=== PATIENT | female | born 1995 | race African-American/Black ===

== ENCOUNTER 2018-04-29 19:43 | Inpatient (IN) | payer OTHER ==
[~2018-04-29] VITALS: Ht 175.3 cm; Wt 83.0 kg
[2018-04-29 21:43] LABS: ABSOLUTE BASOPHIL COUNT 0 /CUMM (0.0-0.2); ABSOLUTE EOSINOPHIL COUNT 0 /CUMM (0.0-0.7); ABSOLUTE GRANULOCYTE CT 5.3 /CUMM (1.4-6.5); ABSOLUTE LYMPH COUNT 0.8 /CUMM (1.2-3.4); ABSOLUTE MONOCYTE COUNT 0.5 /CUMM (0.10-0.60); BASOPHIL % 0.1 % (0.0-2.0); EOSINOPHIL % 0.6 % (0-5); GRANULOCYTE % 80.4 % (42.2-75.2); MEAN CORPUSCULAR HGB 32.5 PG (27.0-31.0); MEAN CORPUSCULAR HGB CONC 34.1 G/DL (33.0-37.0); MEAN CORPUSCULAR VOLUME 95.4 FL (81.0-99.0); MEAN PLATELET VOLUME 12.1 FL (7.4-10.4); RED BLOOD CELL CT 3.25 /CUMM (4.20-5.40); WHITE BLOOD CELL COUNT 6.6 /CUMM (4.8-10.8)
[2018-04-29 21:45] LABS: PLATELET COUNT 125 /CUMM (130-400)
--- NOTE | 2018-04-30 08:00 | History & Physical ---
General Information and HPI MD Statement: I have seen and personally examined CONNOR GAN and documented this H&P. The patient is a 23 year old female at 39 weeks and 5 days gestation who presented with a chief complaint of srom clear fluid. 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 Denies: chills, fever. EENTM: Denies: blurred vision, double vision, visual changes. Cardiovascular: Denies: chest pain. Respiratory: Denies: cough, short of breath. GI: Denies: abdominal pain, diarrhea, nausea, vomiting. Skin: Reports: no symptoms. Neurological/Psychological: Denies: anxiety, depressed. Exam & Diagnostic Data Last 24 Hrs of Vital Signs/I&O vss Intake & Output 04/30 0800 04/30 0000 04/29 1600 Intake Total Output Total Balance Patient 183 lb Weight Obstetric Exam Wgt Gained During : 26# Pelvimetry: seems adequate Dilation (cm): 3 Effacement (%): 50 Station: -2 Membranes: SROM Fluid: clear Fundal Height (cm): 37 Multiple Gestation? No Contractions: rare #1 - FHR Baseline: 130 Category: 1 Estimated Weight: 3600g Presentation: vtx Patient for Induction? Yes Vazquez Score Vazquez Score Response Value Cervix Position: posterior 0 Cervix Consistency: soft 2 Cervix Effacement: 30-50% 1 Cervix Dilation: 1-2 cm 1 Cervix Station: -1 2 Total 6 Physical Exam General Appearance Alert, Oriented X3, Cooperative, No Acute Distress Skin No Rashes HEENT Atraumatic Neck Supple Cardiovascular Regular Rate Lungs Clear to Auscultation Abdomen Normal Bowel Sounds, Soft Neurological Normal Gait, Normal Speech, Strength at 5/5 X4 Ext, Normal Tone Labs Blood Type & Rh: B pos Antibody Screen: neg Hct/Hgb & Platelets #1: 32.1/11.3/145 Hct/Hgb & Platelets #2: 33.7/11.1/159 Rubella: immune VDRL #1: nr VDRL #2: nr HbsAg: neg HIV #1: nr HIV #2 nr 1 Hr P Group B Strep: neg Initial Ultrasound: 10/15/17 10w1d Anatomy Ultrasound: 01/09/18 normal Ultrasound for EFW: 04/17/18 56%tile Genetic Testing: cf neg, Last 24 Hrs of Labs/Rubén: Laboratory Tests 04/29/182039: CBC w Diff NO MAN DIFF REQ, RBC 3.25 L, MCV 95.4, MCH 32.5 H, MCHC 34.1, RDW 13.0, MPV 12.1 H, Gran % 80.4 H, Lymphocytes % 11.9 L, Monocytes % 7.0, Eosinophils % 0.6, Basophils % 0.1, Absolute Granulocytes 5.3, Absolute Lymphocytes 0.8 L, Absolute Monocytes 0.5, Absolute Eosinophils 0, Absolute Basophils 0 04/29/181999: Membrane Rupture POSITIVE, Urine Color YEL, Urine Clarity HAZY H, Urine pH 6.5, Ur Specific Agenda 1.010, Urine Protein NEG, Urine Ketones NEG, Urine Nitrite NEG, Urine Bilirubin NEG, Urine Urobilinogen 0.2, Ur Leukocyte Esterase MOD H, Ur Microscopic SEDIMENT EXAMINED, Urine RBC FEW H, Urine WBC > 75 H, Ur Epithelial Cells MANY H, Urine Mucus FEW, Urine Hemoglobin NEG, Urine Glucose NEG Microbiology 04/29 2000 URINE ROUT: Urine Culture - RECD Assessment/Plan Assessment/Plan: iup at term SROM clear gbs negative no labor after15 hours rom will start pitocin. As Ranked By This Provider Problem List: 1. Core Measures Venous Thromboembolism VTE Risk Factors / No Mechanical VTE Prophylaxis d/t LowRisk-No Interven Req'd No VTE Pharm Prophylaxis d/t LowRisk-No Interven Req'd Attending MD Review Statement Attending Statement Attending MD Statement: examined this patient, discussed with family, discussed w/nursing
[2018-04-30] MEDS ORDERED: PRENATAL TABLE1 EAC2 PO (08:38)
[2018-04-30 10:44] LABS: ABSOLUTE BASOPHIL COUNT 0 /CUMM (0.0-0.2); ABSOLUTE EOSINOPHIL COUNT 0 /CUMM (0.0-0.7); ABSOLUTE GRANULOCYTE CT 4.8 /CUMM (1.4-6.5); ABSOLUTE LYMPH COUNT 0.8 /CUMM (1.2-3.4); ABSOLUTE MONOCYTE COUNT 0.5 /CUMM (0.10-0.60); BASOPHIL % 0 % (0.0-2.0); EOSINOPHIL % 0.8 % (0-5); GRANULOCYTE % 78.4 % (42.2-75.2); HEMATOCRIT 32.9 % (37-47); MEAN CORPUSCULAR HGB 32.4 PG (27.0-31.0); MEAN CORPUSCULAR HGB CONC 33.9 G/DL (33.0-37.0); MEAN CORPUSCULAR VOLUME 95.5 FL (81.0-99.0); MEAN PLATELET VOLUME 11.1 FL (7.4-10.4); PLATELET COUNT 130 /CUMM (130-400); RBC DISTRIBUTION WIDTH 12.7 % (11.5-14.5); RED BLOOD CELL CT 3.44 /CUMM (4.20-5.40); WHITE BLOOD CELL COUNT 6.1 /CUMM (4.8-10.8)
--- NOTE | 2018-04-30 12:26 | PN- OBGYN ---
Surgical Brief Attending Note Brief Attending Note: Pitocin started 8am pt now 5-6 cm and anterior bp has been trending up 150/100 PIH labs done and all normal except UTP/Cr is elevated pt is asymptomatic imp PIH without severe features will hold MgSO4 for now continue to monitor bp and symptoms pt declines epidural or any pain meds.
--- NOTE | 2018-04-30 13:31 | Labor & Delivery Summary ---
Delivery Summary Vaginal Delivery: Vaginal: vertex Episiotomy/Lacerations: Episiotomy/Lacerations: none Type: MIDLINE Repair: 3-0 POLYSORB Anesthesia: NESSICAINE 8CC Placenta: Placenta: spontanteous, normal, 3 vessel, nuchal cord (x_) Anesthesia: none Apgars - 1 Min: 9 Apgars - 5 Min: 9 Additional Comments: PUSHED 3 TIMES LOOSE NUCHAL PLACENTE INTACT REPARE EPISE 3-0 POLYSORB
[2018-05-01 09:23] LABS: ABSOLUTE BASOPHIL COUNT 0 /CUMM (0.0-0.2); ABSOLUTE EOSINOPHIL COUNT 0 /CUMM (0.0-0.7); ABSOLUTE GRANULOCYTE CT 6.2 /CUMM (1.4-6.5); ABSOLUTE LYMPH COUNT 1.2 /CUMM (1.2-3.4); ABSOLUTE MONOCYTE COUNT 0.6 /CUMM (0.10-0.60); BASOPHIL % 0 % (0.0-2.0); EOSINOPHIL % 0.3 % (0-5); GRANULOCYTE % 77.9 % (42.2-75.2); HEMATOCRIT 29.8 % (37-47); MEAN CORPUSCULAR HGB 32.8 PG (27.0-31.0); MEAN CORPUSCULAR HGB CONC 34.1 G/DL (33.0-37.0); MEAN PLATELET VOLUME 10.9 FL (7.4-10.4); PLATELET COUNT 121 /CUMM (130-400); RBC DISTRIBUTION WIDTH 12.6 % (11.5-14.5); RED BLOOD CELL CT 3.11 /CUMM (4.20-5.40)
--- NOTE | 2018-05-01 09:38 | PN- Post Delivery/GYN ---
Subjective Subjective: doing well, no complaints. tolerate diet, void without difficulties, ambulating well. Review of Systems Constitutional: Reports: no symptoms. EENTM: Reports: no symptoms. Cardiovascular: Reports: no symptoms. Respiratory: Reports: no symptoms. Genitourinary: Reports: see HPI. Musculoskeletal: Reports: no symptoms. All Other Systems: Reviewed and Negative Objective Last 24 Hrs of Vital Signs/I&O vss Physical Exam: CV RRR Lungs CTA B/L Abdomen: soft, nontender, uterus firm, fundus below umbilicus, lochia mild Ext: DCT (-) Current Medications: Current Medications Sig/Jade Start time Last Medication Dose Route Stop Time Status Admin Acetaminophen 650 MG Q4P PRN 04/30 1330 AC PO Chloroprocaine HCl 30 ML ONCE ONE 04/30 1330 DC 04/30 SC 04/30 1331 1353 Docusate Sodium 100 MG BID PRN 04/30 1330 AC PO Hydroxyzine HCl 50 MG AT BEDTIME NEED.. 04/30 1330 AC PO Ibuprofen 800 MG Q6P PRN 04/30 1330 AC PO Labetalol HCl 100 MG BID 04/30 1427 DC PO Lactated Ringer's 1,000 ML Q8H 04/29 2045 DC 04/30 IV 0746 Magnesium Hydroxide 30 ML DAILY NEEDED PRN 04/30 1330 AC PO Oxytocin 20 UNITS Q5H 04/30 1330 DC 04/30 Lactated Ringer's 1,000 ML IV 04/30 1829 1353 Oxytocin 30 UNITS PER PROTOCL 04/30 0745 DC 04/30 Lactated Ringer's 500 ML IV 0746 Last 24 Hrs of Labs/Rubén: Laboratory Tests 05/01/18 0630: CBC w Diff Pending, WBC Pending, RBC Pending, Hgb Pending, Hct Pending, MCV Pending, MCH Pending, MCHC Pending, RDW Pending, Plt Count Pending, MPV Pending 04/30/18 1010: Ur Random Creatinine 21.5, U Random Total Protein 15 H, Protein/Creatinin Ratio 0.6 H 04/30/18 1010: Urine Color STRAW, Urine Clarity CLEAR, Urine pH 7.0, Ur Specific Rankin 1.010, Urine Protein NEG, Urine Ketones NEG, Urine Nitrite NEG, Urine Bilirubin NEG, Urine Urobilinogen 0.2, Ur Leukocyte Esterase SMALL H, Ur Microscopic SEDIMENT EXAMINED, Urine WBC 1-3 H, Ur Epithelial Cells FEW, Urine Bacteria RARE H, Urine Hemoglobin NEG, Urine Glucose NEG 04/30/18 1000: Estimated GFR > 60, Uric Acid 5.1, AST 21, ALT 22, Lactate Dehydrogenase 362, CBC w Diff NO MAN DIFF REQ, RBC 3.44 L, MCV 95.5, MCH 32.4 H, MCHC 33.9, RDW 12.7, MPV 11.1 H, Gran % 78.4 H, Lymphocytes % 12.6 L, Monocytes % 8.2, Eosinophils % 0.8, Basophils % 0, Absolute Granulocytes 4.8, Absolute Lymphocytes 0.8 L, Absolute Monocytes 0.5, Absolute Eosinophils 0, Absolute Basophils 0 Assessment/Plan Assessment/Plan 23yo, s/p , PPD#1 1. encourage ambulation and 2.RT PP care Problem List: 1. Attending MD Review Statement Attending Statement Attending MD Statement: examined this patient, discussed with family, discussed with nursing
[2018-05-02 02:36] VITALS: BP 120/84
--- NOTE | 2018-05-02 09:08 | PN- OBGYN ---
Surgical Brief Attending Note Brief Attending Note: HPPD 2 With my permission patient was discharged from the hospital prior to my making late rounds. I spoke with her and she was feeling well without complaints. Bleeding was not heavy, she had minimal to no pain, and nursing was going well. Per RN she was eating, voiding, and ambulating without difficulty. afebrile, VS normal per RN eval. note - Fundus - firm, NT, at U Perineum - intact Extr - benign H/H 10.2/29.8% A: stable s/p mild chronic anemia P: discharged home con't daily PNV to office in 6 weeks for check
[2018-05-02] MEDS ORDERED: IBUPROFEN800 M1 PO (09:18)
[2018-05-02] MEDS ORDERED: DOCUSATE SODIU100 M3 PO (09:40)
[2018-05-02] MEDS ORDERED: LABETALOL HCL100 M1 PO (10:08)
[2018-05-02] MEDS ORDERED: TYLENOL325 M1 PO (10:28)
== END 2018-05-02 11:45 | DRG 560 ==
LOC: CBCO 19:43 → GNO 20:30
PROVIDERS: Obstetrics & Gynecology
PROC: 0W8NXZZ Division of Female Perineum, External Approach (ICD-10-PCS; principal; 2018-04-29)
PROC: 10E0XZZ Delivery of Products of Conception, External Approach (ICD-10-PCS; principal; 2018-04-29)
DX: O69.81X0 Labor and delivery complicated by cord around neck, without compression, not applicable or unspecified (principal); Z3A.39 39 weeks gestation of pregnancy; Z37.0 Single live birth
CPT/HCPCS: GNOP; 36415; 81001; 82570; 84112; 87086; G0463; J7120